=== PATIENT | female | born 1975 | race Caucasian/White ===

== ENCOUNTER 2019-05-30 13:39 | Emergency (ER) | payer OTHER ==
[~2019-05-30] VITALS: Ht 152.4 cm; Wt 52.6 kg
[~2019-05-30 13:39] MED LIST: APAP/HYDROCODON1 T13 PO; COL100 PO; ECO81 PO; FLO4 PO; HUMALOG100 U/ML SC; LAC PO; LANTUS SOLOS100 U/M1 SQ; LEVAQUIN750 MG PO; ZOC20 PO
[2019-05-30 13:47] VITALS: Ht 152.4 cm; Wt 52.6 kg
[2019-05-30 15:29] VITALS: BP 148/95
== END 2019-05-30 16:13 | disposition home or self-care (01) ==
LOC: ED 13:39
DX: S09.8XXA Other specified injuries of head, initial encounter (principal); S00.512A Abrasion of oral cavity, initial encounter; R42 Dizziness and giddiness; E11.9 Type 2 diabetes mellitus without complications; Z98.51 Tubal ligation status; Z90.89 Acquired absence of other organs; Y04.0XXA Assault by unarmed brawl or fight, initial encounter; Y93.89 Activity, other specified; Y92.830 Public park as the place of occurrence of the external cause; Y99.8 Other external cause status
CPT/HCPCS: 82962; J1885

== ENCOUNTER 2019-07-14 12:08 | Emergency (ER) | payer OTHER ==
[~2019-07-14] VITALS: Ht 157.5 cm; Wt 54.9 kg
[2019-07-14 12:11] VITALS: Ht 157.5 cm; Wt 54.9 kg
[2019-07-14 13:03] VITALS: BP 153/89
== END 2019-07-14 13:03 | disposition home or self-care (01) ==
LOC: ED 12:08
DX: E11.40 Type 2 diabetes mellitus with diabetic neuropathy, unspecified (principal); Z98.51 Tubal ligation status; Z98.890 Other specified postprocedural states; Z90.89 Acquired absence of other organs

== ENCOUNTER 2019-08-22 19:54 | Emergency (ER) | payer OTHER ==
[~2019-08-22] VITALS: Ht 149.9 cm; Wt 54.4 kg
[2019-08-22 20:02] VITALS: Ht 149.9 cm; Wt 54.4 kg
[2019-08-22 20:47] LABS: BASOPHIL % 0.2 % (0-2); PLATELET COUNT 243 x10^3mcL (130-400); RED CELL DISTRIBUTION WIDTH 13.3 % (11.5-14.5)
[2019-08-22 20:59] LABS: CALCIUM 8.9 mg/dL (8.5-10.1); CARBON DIOXIDE 26.5 mmol/L (21-32); CHLORIDE SERUM 100 mmol/L (98-107); GFR1 > 60 mL/min; GLUCOSE SERUM 413 mg/dL (74-106); POTASSIUM SERUM 4.2 mmol/L (3.5-5.1); SODIUM SERUM 136 mmol/L (136-145)
[2019-08-22 21:04] LABS: ALBUMIN 3.5 g/dL (3.4-5.0); ALKALINE PHOSPHATASE 114 U/L (46-116); ALT/SGPT 19 U/L (14-59); AST/SGOT 8 U/L (15-37); BILIRUBIN TOTAL 0.17 mg/dL (0.20-1.00); TOTAL PROTEIN, SERUM 6.6 g/dL (6.4-8.2)
[2019-08-22 21:43] LABS: microscopic required? NO
[2019-08-22 21:50] LABS: UA SPECIFIC GRAVITY 1.015 (1.005-1.035); urine erythrocyte NEGATIVE (NEGATIVE)
[2019-08-22 22:52] VITALS: BP 128/80
== END 2019-08-22 22:53 | disposition home or self-care (01) ==
LOC: ED 19:54
PROVIDERS: Emergency Medicine
DX: E11.65 Type 2 diabetes mellitus with hyperglycemia (principal); Z98.890 Other specified postprocedural states; Z90.49 Acquired absence of other specified parts of digestive tract
CPT/HCPCS: 82962; J1815; J7030; Q0092

== ENCOUNTER 2019-10-09 03:03 | Emergency (ER) | payer OTHER ==
[~2019-10-09] VITALS: Ht 149.9 cm; Wt 57.2 kg
[2019-10-09 04:13] VITALS: BP 121/79
== END 2019-10-09 04:13 | disposition home or self-care (01) ==
LOC: ED 03:03
DX: S00.511A Abrasion of lip, initial encounter (principal); M79.10 Myalgia, unspecified site; E11.9 Type 2 diabetes mellitus without complications; G43.909 Migraine, unspecified, not intractable, without status migrainosus; Z98.890 Other specified postprocedural states; Z90.89 Acquired absence of other organs; Z98.51 Tubal ligation status; Y04.8XXA Assault by other bodily force, initial encounter; Y93.89 Activity, other specified; Y92.89 Other specified places as the place of occurrence of the external cause; Y99.8 Other external cause status
CPT/HCPCS: 82962; J1885